=== PATIENT | male | born 1950 | race Caucasian/White ===

== ENCOUNTER 2024-04-24 11:16 | Inpatient (IN) | payer MEDICARE, OTHER, SELFPAY ==
[2024-04-24] VITALS (17 sets, daily range): BP systolic 109–156; BP diastolic 67–80; BMI 27.7; BMI 28.3
[2024-04-24] MEDS: NORMOSOL-R/PLASMALYTE-A 1000 IV (07:14)
--- NOTE | 2024-04-24 09:42 | W.PN.ADMIT ---
Progress Note - Admit
Progress Note - Admit
pt underwent TURBT of large dome tumor
admit for monitoring and CBI
[2024-04-24] MEDS: ZOFRAN 4 MG IV (10:04)
[2024-04-24] MEDS: VALIUM INJECTION 5 MG IV (10:06)
[2024-04-24 10:16] LABS: Hematocrit 38.5 % (39.0-52.0); Hemoglobin 13.3 g/dL (13.0-18.0); Mean Corp Hgb Conc. 34.5 g/dL (33.0-37.0); Mean Corpuscular Hgb 31.4 pg (27.0-31.0); Mean Platelet Volume 9.9 fL (7.4-10.4); Platelet Count 145 10^3/uL (130-400); Red Blood Cell Count 4.23 10^6/uL (4.70-6.10); Red Cell Dist. Width 13.6 % (11.5-14.5); White Blood Cell Count 5.5 10^3/uL (4.8-10.8)
[2024-04-24 10:36] LABS: Blood Urea Nitrogen 16 mg/dl (9-20); Calcium 8.5 mg/dl (8.4-10.2); Carbon Dioxide 24 mmol/L (22-30); Chloride 102 mmol/L (98-107); Estimated Creatinine Clearance 73 ml/min; Glucose 119 mg/dl (70-99); Potassium 4.6 mmol/L (3.5-5.1); Sodium 137 mmol/L (135-145); eGFR > 60.00
[2024-04-24] MEDS: NSS 1000 IV ×2 (10:46→23:02)
--- NOTE | 2024-04-24 13:58 | PTCARENOTE ---
received pt from PACU, to room 331, oriented to room, VSS taken, pt reports no pain, CBI running continuously, pale pink, family at bedside. Pt did develop headache, BP 150/78. Tylenol given, continue plan of care
[2024-04-24] MEDS: TYLENOL 650 MG PO (14:07)
[2024-04-24] MEDS: SYMBICORT 160/4.5 MCG INHALER 2 PUFF INH (20:36)
[2024-04-24] MEDS: VIBRAMYCIN 100 MG PO (21:51)
[2024-04-24] MEDS: COLACE 100 MG PO (21:52)
--- NOTE | 2024-04-25 02:39 | PTCARENOTE ---
cbi running yellow - no clots/issues-
--- NOTE | 2024-04-25 06:18 | PTCARENOTE ---
urine is clear yellow- cbi running slowly- no issues with clotting overnight
--- NOTE | 2024-04-25 06:20 | PTCARENOTE ---
tolerating clear liquid diet- hoping to have diet advanced
[2024-04-25 06:25] LABS: Hematocrit 37.6 % (39.0-52.0); Hemoglobin 13.2 g/dL (13.0-18.0); Mean Corp Hgb Conc. 35.1 g/dL (33.0-37.0); Mean Corpuscular Hgb 31.4 pg (27.0-31.0); Mean Corpuscular Volume 89.3 fL (80.0-94.0); Mean Platelet Volume 10.1 fL (7.4-10.4); Platelet Count 151 10^3/uL (130-400); Red Blood Cell Count 4.21 10^6/uL (4.70-6.10); Red Cell Dist. Width 13.2 % (11.5-14.5); White Blood Cell Count 12.1 10^3/uL (4.8-10.8)
[2024-04-25 06:45] LABS: Blood Urea Nitrogen 11 mg/dl (9-20); Calcium 8.6 mg/dl (8.4-10.2); Carbon Dioxide 23 mmol/L (22-30); Chloride 108 mmol/L (98-107); Estimated Creatinine Clearance 93 ml/min; Glucose 104 mg/dl (70-99); Potassium 4.1 mmol/L (3.5-5.1); Sodium 141 mmol/L (135-145); eGFR > 60.00
[2024-04-25 07:30] VITALS: BP 134/75
[2024-04-25] MEDS: SYMBICORT 160/4.5 MCG INHALER 2 PUFF INH (08:34)
[2024-04-25] MEDS: CALAN EXTENDED RELEASE 240 MG PO (08:42)
[2024-04-25] MEDS: COLACE 100 MG PO (08:43)
[2024-04-25] MEDS: LIPITOR 10 MG PO (08:45)
[2024-04-25] MEDS: FLOMAX 0.4 MG PO (08:45)
[2024-04-25] MEDS: TRANXENE 7.5 MG PO (08:45)
--- NOTE | 2024-04-25 09:21 | W.PN.URO.CBU ---
Today's Communication / Plan
-
stop cbi
possible discharge if urine clear
Assessment / Plan
-
s/p TURBT
stop cbi
UOOB/regular diet/leg bag teaching
will re-assess later today- if urine clear- pastrana home with brannon
Diagnosis
-
Date of Service: April 25, 2024
-
Patient Diagnosis:
bladder cancer
Post Op Day:
turbt 04/24
Subjective
-
pt comfortable
urine was clear- light pink this am
Objective
-
Vital Signs
Temp Pulse Resp BP Pulse Ox
98 F 83 16 134/75 96
04/25/24 07:30 04/25/24 08:42 04/25/24 08:37 04/25/24 08:42 04/25/24 08:37
Intake and Output
04/24/24 04/25/24 04/26/24
06:59 06:59 06:59
Intake Total 3855 / 3855
Output Total 4000 / 4000
Balance -145 / -145
Intake:
Oral fluids 2640 / 2640
IV fluids (Total) 1215 / 1215
NSS 105 / 105
Normosol 150 / 150
Output:
True Urine Output from CBI 4000 / 4000
Other:
Number of approximated MODERATE 2
amounts of urine
Laboratory Results
04/25/24 05:37
04/25/24 05:37
Review of Systems
-
Constitutional: Fatigue
Respiratory: No Symptoms
Cardiac: No Symptoms
Abdomen/GI: No Symptoms
Physical Exam
-
General -no acute distress
Abdomen - soft, non-tender
Genitalia - normal- brannon in place
--- NOTE | 2024-04-25 14:08 | W.DS.TRANS ---
DC Summary - Equipment Coordinator
-
Discharge Instructions:
Sleep Apnea Risk Intermediate
Discharge Diagnosis/Procedures you had a transurethral resection of a bladder
tumor
Diet No restrictions
Activity No strenuous activity
Additional Activity no lifting over 10lbs until further notice
Driving Restrictions no driving until catheter is removed
Bathing Restrictions OK to Shower
Wound Care expect some blood in urine and some blood around
catheter
Instructions:
Stand-Alone Forms:
Changes to Home Medications: No
Discharge Medications:
DC Medications w/original date entered in [employer]
clorazepate dipotassium 7.5 mg tablet 7.5 mg PO DAILY Mental Health/Anxiety 04/23/24
doxycycline hyclate 100 mg capsule 100 mg PO HS Infection 04/23/24
fluticasone furoate 100 mcg-vilanterol 25 mcg/dose inhalation powder (Breo Ellipta) 1 inh inhalation HS Lung/Breathing Issues 04/23/24
guar gum 1 tbsp PO DAILY Constipation 04/23/24
simvastatin 20 mg tablet 20 mg PO DAILY High Cholesterol 04/23/24
verapamil 240 mg tablet,extended release 240 mg PO DAILY Blood Pressure 04/23/24
tamsulosin 0.4 mg capsule 0.4 mg PO DAILY #30 caps 04/25/24
Home Medication Changes
Pending Results: Yes
Additional Pending Results:
bladder biopsy report
[2024-04-25] MEDS: TYLENOL 650 MG PO (14:53)
[2024-04-25 15:05] VITALS: BP 127/60
--- NOTE | 2024-04-25 15:08 | CM ---
met with patient at bedside.patient lives with his chelo franklin with no bailey ,his bd and bathis on the second level,he amb i and is I with his adl.he has never had a vn or been in ip rehab.dr jae escalante is his pcp and he uses [facility] [place].
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
== END 2024-04-25 16:05 | disposition home or self-care (01) | DRG 670 ==
LOC: 3 WEST ACU 11:16
PROVIDERS: ADMITTING PHYSICIAN Specialist
PROC: 3E1K78Z Irrigation of Genitourinary Tract using Irrigating Substance, Via Natural or Artificial Opening (ICD-10-PCS; 2024-04-24)
PROC: 0TBB8ZZ Excision of Bladder, Via Natural or Artificial Opening Endoscopic (ICD-10-PCS; 2024-04-24)
DX: C67.1 Malignant neoplasm of dome of bladder (principal); I10 Essential (primary) hypertension; E78.00 Pure hypercholesterolemia, unspecified; Z80.42 Family history of malignant neoplasm of prostate; Z82.49 Family history of ischemic heart disease and other diseases of the circulatory system; Z79.51 Long term (current) use of inhaled steroids
CPT/HCPCS: 88307; 80048; 85027; 93005; 94640; 99406

== ENCOUNTER → 2024-05-19 07:36 | Outpatient (REF) | payer MEDICARE, OTHER, SELFPAY | LOC: RAD 07:36 | PROVIDERS: ATTENDING PHYSICIAN Specialist; FAMILY PHYSICIAN Internal Medicine | DX: R31.9 Hematuria, unspecified (principal) | CPT/HCPCS: 74178; Q9967 ==

== ENCOUNTER 2024-05-23 12:55 | Inpatient (IN) | payer MEDICARE, OTHER, SELFPAY ==
[2024-05-23] VITALS (16 sets, daily range): BP systolic 104–157; BP diastolic 52–86; BMI 27.8
[2024-05-23] MEDS: CYSVIEW KIT 100 MG INTRAVES (07:52)
[2024-05-23] MEDS: TYLENOL 1000 MG PO (08:41)
--- NOTE | 2024-05-23 10:37 | W.PN.ADMIT ---
Progress Note - Admit
Progress Note - Admit
pt underwent right ureteroscopy/bx of tumor/stent and TURBT
admitted for cbi and observation
[2024-05-23 11:29] LABS: Blood Urea Nitrogen 18 mg/dl (9-20); Calcium 8.8 mg/dl (8.4-10.2); Carbon Dioxide 27 mmol/L (22-30); Chloride 105 mmol/L (98-107); Estimated Creatinine Clearance 72 ml/min; Glucose 103 mg/dl (70-99); Potassium 4.5 mmol/L (3.5-5.1); Sodium 140 mmol/L (135-145); eGFR > 60.00
[2024-05-23 12:06] LABS: Hematocrit 37.3 % (39.0-52.0); Hemoglobin 12.8 g/dL (13.0-18.0); Mean Corp Hgb Conc. 34.3 g/dL (33.0-37.0); Mean Corpuscular Hgb 30.5 pg (27.0-31.0); Mean Platelet Volume 10.1 fL (7.4-10.4); Platelet Count 144 10^3/uL (130-400); Red Blood Cell Count 4.19 10^6/uL (4.70-6.10); Red Cell Dist. Width 13.9 % (11.5-14.5); White Blood Cell Count 4.3 10^3/uL (4.8-10.8)
[2024-05-23] MEDS: VALIUM INJECTION 5 MG IV ×2 (13:54→20:05)
--- NOTE | 2024-05-23 15:38 | PTCARENOTE ---
Pt received from the PACU via bed. Transport was w/o incident. Pt is AAOx3, HRR, lungs are clear, resp. easy. VSS, Pt is afebrile. Pt with CBI running through brannon cath w/o difficulty. Urine is pale pink/clear at this time. Pt and Pt's family
instructed on plan of care. Both Pt and family verbalized understanding of instructions. Call dias is within reach.
--- NOTE | 2024-05-23 15:48 | CM ---
Reviewed the chart notes and spoke with the patient, his spouse and daughter at the bedside. The patient resides with his spouse in a split level home with no steps to enter. The patient reports no DME/VN/SNF in the past. The patient confirmed
his pharmacy of [address] [place] [address]. CM continues to be available to patient/family and is monitoring medical plan for needs at discharge.
Plan: Discharge to home when medically stable. No anticipated needs identified at this time.
[2024-05-23] MEDS: ULTRAM 50 MG PO (18:10)
[2024-05-23] MEDS: SYMBICORT 80/4.5 MCG INHALER 2 PUFF INH (18:17)
[2024-05-23] MEDS: COLACE PO (21:57)
[2024-05-23] MEDS: VIBRAMYCIN 100 MG PO (21:57)
--- NOTE | 2024-05-24 | PTCARENOTE ---
CBI clamped at this time per order.
[2024-05-24] MEDS: ULTRAM 50 MG PO (00:11)
--- NOTE | 2024-05-24 02:25 | PTCARENOTE ---
Pt brannon patent, no clots noted urine remain blood tinged at this time
[2024-05-24 03:30] VITALS: BP 132/71
[2024-05-24] MEDS: FLOMAX 0.4 MG PO (07:46)
[2024-05-24] MEDS: COLACE 100 MG PO (07:47)
[2024-05-24] MEDS: LIPITOR 10 MG PO (07:47)
[2024-05-24] MEDS: CALAN EXTENDED RELEASE 240 MG PO (07:47)
[2024-05-24] MEDS: TRANXENE 7.5 MG PO (07:48)
[2024-05-24 07:55] VITALS: BP 143/84
--- NOTE | 2024-05-24 08:09 | W.DS.TRANS ---
DC Summary - Assistant Finance Director
-
Discharge Instructions:
Sleep Apnea Risk Intermediate
Discharge Diagnosis/Procedures you had a ureteral biopy and re-resection of
bladder tumor
Diet No restrictions
Activity No strenuous activity
Additional Activity no lifting over 10lbs for 7 days
Driving Restrictions no driving until brannon catheter removed
Bathing Restrictions OK to Shower
Wound Care expect some blood in urine and around the
catheter
Instructions:
Stand-Alone Forms:
Changes to Home Medications: No
Discharge Medications:
DC Medications w/original date entered in [employer]
clorazepate dipotassium 7.5 mg tablet 7.5 mg PO DAILY Mental Health/Anxiety 04/23/24
doxycycline hyclate 100 mg capsule 100 mg PO HS Infection 04/23/24
fluticasone furoate 100 mcg-vilanterol 25 mcg/dose inhalation powder (Breo Ellipta) 1 inh inhalation HS Lung/Breathing Issues 04/23/24
guar gum 1 tbsp PO DAILY Constipation 04/23/24
simvastatin 20 mg tablet 20 mg PO DAILY High Cholesterol 04/23/24
verapamil 240 mg tablet,extended release 240 mg PO DAILY Blood Pressure 04/23/24
tamsulosin 0.4 mg capsule 0.4 mg PO DAILY #30 caps 04/25/24
Home Medication Changes
Pending Results: Yes
Additional Pending Results:
bladder/ureteral pathology
Total time spent discharging patient (in min): 25
--- NOTE | 2024-05-24 08:10 | W.PN.URO.CBU ---
Today's Communication / Plan
-
Discharge home w/ [facility] catheter care/teaching by RN
F/U as scheduled in office on 05/26 for catheter removal
Assessment / Plan
-
Bladder cancer
Right ureteral tumor
05/23: s/p blue light TURBT + right URS/biopsy/stent placement
Urine clear per 3-way catheter w/ CBI clamped.
Post-op surgical milestones cleared.
Diagnosis
-
Date of Service: May 24, 2024
-
Patient Diagnosis:
Bladder cancer
Right ureteral tumor
Post Op Day:
05/23: s/p blue light TURBT + right URS/biopsy/stent placement
Subjective
-
Urine clear on clamp trial.
Denies pelvic/suprapubic pain.
Tolerating diet w/o issues.
Eager to go home!
Objective
-
Vital Signs
Temp Pulse Resp BP Pulse Ox
97.5 F 86 18 143/84 98
05/24/24 03:30 05/24/24 08:47 05/24/24 08:47 05/24/24 07:47 05/24/24 08:47
Intake and Output
05/23/24 05/24/24 05/25/24
06:59 06:59 06:59
Intake Total 650 / 650
Output Total 1850 / 1850 1375 / 1375
Balance -1200 / -1200 -1375 / -1375
Intake:
Oral fluids 600 / 600
IV fluids (Total) 50 / 50
Normosol 50 / 50
Output:
True Urine Output from CBI 1850 / 1850 1375 / 1375
Laboratory Results
05/23/24 11:07
05/23/24 11:07
Physical Exam
-
General - well developed, well nourished, no acute distress
Abdomen - soft, non-tender, non-distended
Genitalia - normal, 3-way catheter w/ clear UOP (CBI off)
Skin - warm & dry with no rash
Neuro - AOx3, no motor deficits
Extremities - no clubbing, no cyanosis, no edema
Counseling
-
D/w patient.
D/w RN.
Care Review
Data Reviewed
Discussed with: Nursing
[2024-05-24] MEDS: SYMBICORT 80/4.5 MCG INHALER 2 PUFF INH (08:24)
--- NOTE | 2024-05-24 09:44 | CM ---
CM reviewed medical records. Patient for discharge later today. CM noted no needs.
PLAN: Home no needs.
[2024-05-24] MEDS: FLUAD (65 yr+) 2024-2025 FORMULA 0.5 ML IM (09:50)
[2024-05-24 11:41] VITALS: BP 129/63
== END 2024-05-24 11:50 | disposition home or self-care (01) | DRG 669 ==
LOC: 2 SOUTH 12:55
PROVIDERS: Radiology Diagnostic Radiology; Surgery; ADMITTING PHYSICIAN Specialist
PROC: 0TB68ZX Excision of Right Ureter, Via Natural or Artificial Opening Endoscopic, Diagnostic (ICD-10-PCS; 2024-05-23)
PROC: BT1D1ZZ Fluoroscopy of Right Kidney, Ureter and Bladder using Low Osmolar Contrast (ICD-10-PCS; 2024-05-23)
PROC: 0TBB8ZZ Excision of Bladder, Via Natural or Artificial Opening Endoscopic (ICD-10-PCS; 2024-05-23)
PROC: 3E02340 Introduction of Influenza Vaccine into Muscle, Percutaneous Approach (ICD-10-PCS; 2024-05-24)
DX: C67.9 Malignant neoplasm of bladder, unspecified (principal); C66.1 Malignant neoplasm of right ureter; I10 Essential (primary) hypertension; E78.00 Pure hypercholesterolemia, unspecified; Z23 Encounter for immunization; Z82.49 Family history of ischemic heart disease and other diseases of the circulatory system; Z80.42 Family history of malignant neoplasm of prostate
CPT/HCPCS: 88305; 88307; 74420; 76000; 80048; 85027; 88342; 90662; 94640; A9589; C1758; C1894; C2617; G0008